=== PATIENT | male | born 1970 | race Caucasian/White ===

== ENCOUNTER 2024-04-26 10:20 | Outpatient (CLI) | payer OTHER, SELFPAY ==
--- NOTE | 2024-04-26 10:32 | XR_ITS ---
WS: [id number] XR lumbar spine 2-3V* [id number] REASON FOR EXAM: PAIN FINDINGS: Minimal rotatory levoscoliosis. Normal lordosis. No significant lumbar vertebral body compression deformity or focal vertebral body lesion. Mild vertebral body osteophytosis L1-L5. Mild narrowing of the L4-L5 disc space. Moderate narrowing of the L5-S1 disc space. XR/XR lumbar spine 2-3V* [id number] IMPRESSION: Mild lumbar degenerative spondylosis as above.
--- NOTE | 2024-04-26 10:32 | XR_ITS ---
WS: [id number] XR cervical spine 3V* [id number] REASON FOR EXAM: PAIN FINDINGS: Straightening of the normal lordosis. No significant compression deformity or focal lesion of the cervical vertebrae. Normal odontoid. Mild narrowing of the C5-C6 and C6-C7 disc spaces. Moderate osteophytosis anteriorly and posteriorly at C5-C6. There is anterior displacement of an anterior osteophyte at the C5-C6 level. Potentially this could represent a fracture of the osteophyte, no previous examination for comparison. Facet joints are in normal alignment. XR/XR cervical spine 3V* [id number] IMPRESSION: Mild degenerative spondylosis with osteophyte displacement as above.
== END 2024-04-26 10:21 | disposition home or self-care (01) ==
PROVIDERS: Family Provider Nurse Practitioner Family; Visit Provider Family Medicine
DX: Z02.71 Encounter for disability determination (principal); M25.78 Osteophyte, vertebrae; M47.896 Other spondylosis, lumbar region; M47.897 Other spondylosis, lumbosacral region
CPT/HCPCS: 72040; 72100